=== PATIENT | female | born 1940 ===

== ENCOUNTER 2019-07-14 08:32 | Emergency (ER) | payer OTHER, BC ==
[~2019-07-14] VITALS: Ht 154.9 cm; Wt 53.5 kg
== END 2019-07-14 13:55 | disposition home or self-care (01) ==
LOC: ER 08:32
DX: R06.02 Shortness of breath (principal)

== ENCOUNTER 2022-04-21 07:46 | Outpatient (CLI) | payer OTHER, BC | END 2022-04-21 08:00 | disposition home or self-care (01) | LOC: NUCLEAR 07:46 | PROVIDERS: ATTEND Internal Medicine | DX: R60.0 Localized edema (principal); R06.00 Dyspnea, unspecified; Z88.0 Allergy status to penicillin; Z88.6 Allergy status to analgesic agent | CPT/HCPCS: 78452; 93017; A9500 ==

== ENCOUNTER 2022-04-21 08:02 | Outpatient (CLI) | payer OTHER, BC | END 2022-04-21 08:03 | disposition home or self-care (01) | LOC: LAB 08:02 | PROVIDERS: ATTEND Internal Medicine | DX: U07.1 COVID-19 (principal); B34.1 Enterovirus infection, unspecified ==